=== PATIENT | male | born 1945 | race American Indian/Alaskan Native ===

== ENCOUNTER 2016-08-08 12:23 | Outpatient (CLI) | payer MEDICARE, OTHER ==
--- NOTE | 2016-08-09 10:22 | Ultrasound Report ---
ULTRASOUND RENAL BILATERAL: INDICATION: Chronic kidney disease, stage III. COMPARISON: None similar at this institution. FINDINGS: Renal sonography demonstrates top normal/borderline renal cortical echogenicity. Grossly preserved contours. No hydronephrosis. Right kidney is 10.8 x 4 x 4.6 cm with cortical thickness of 1.2 cm. An approximately 2.4 cm right renal interpolar cyst posteromedially incidentally noted. Duplicated intrarenal collecting system also not entirely excluded. Left kidney is 9.9 x 5.7 x 4.8 cm with cortical thickness of 1.5 cm. Approximately 1 cm hypoechoic cortical cyst superiorly may be present, image 20 while an approximately 1 cm somewhat hyperechoic lower pole cortical focus as on images 25-27 may represent a hemorrhagic cyst, amongst others. Urinary bladder grossly within normal limits, to the extent assessed. CONCLUSION: No acute renal sonographic abnormality with slight underlying medical renal disease sonographically and bilateral renal cysts, as described. Thank you for the opportunity to participate in this patient's care.
== END 2016-08-08 12:24 | disposition home or self-care (01) ==
LOC: US 12:23
PROVIDERS: ATTEND Specialist
DX: N18.3 Chronic kidney disease, stage 3 (moderate) (principal); N28.1 Cyst of kidney, acquired
CPT/HCPCS: 76770

== ENCOUNTER 2019-04-20 09:17 | Emergency (ER) | payer MEDICARE ==
--- NOTE | 2019-04-20 10:35 | Emergency Department Report ---
ED General Adult HPI - General Chief complaint: Cardiac Arrest/CPR Stated complaint: CARDIAC ARREST Time Seen by Provider: 04/20/19 09:48 Source: EMS Mode of arrival: Stretcher Limitations: Other - History of Present Illness Initial comments: The patient presents to the emergency department in cardiac arrest via EMS. The patient is intubated on arrival. Per EMS the patient was last seen normal 30 minutes prior to arrival. Per EMS the patient was asystole upon arrival and received 4 rounds of epinephrine and chest compressions prior to arrival to the ED. the patient has a history of liver cancer -: Sudden Severity scale (0 -10): 0 Improves with: none Worsens with: none Associated Symptoms: denies other symptoms Treatments Prior to Arrival: none - Related Data Allergies Allergy/AdvReac Type Severity Reaction Status Date / Time No Known Allergies Allergy Unverified 08/08/16 12:23 ED Review of Systems ROS: Stated complaint: CARDIAC ARREST Other details as noted in HPI Comment: Unobtainable due to pts medical conditions ED Physical Exam - General Limitations: Other General appearance: other (intubated and unresponsive) - Head Head exam: Present: atraumatic, normocephalic - Eye Eye exam: Present: other (pupils fixed ) - ENT ENT exam: Present: mucous membranes dry - Neck Neck exam: Present: normal inspection - Respiratory Respiratory exam: Present: other (equal breath sounds with bag valve masking) - Cardiovascular Cardiovascular Exam: Present: other (asystole) - GI/Abdominal GI/Abdominal exam: Present: soft. Absent: distended, tenderness - Extremities Exam Extremities exam: Present: pedal edema, other (pitting edema of the right leg). Absent: joint swelling - Back Exam Back exam: Present: normal inspection - Neurological Exam Neurological exam: Present: other (gcs 3) - Psychiatric Psychiatric exam: Present: other (able to assess due to the patient's presentation) - Skin Skin exam: Present: warm, dry, intact, normal color. Absent: rash ED Medical Decision Making - Medical Decision Making ACLS protocol was followed please see code sheet There was a point of return of spontaneous circulation and the patient coded again to no avail Time of is 9:47 AM Critical care attestation.: If time is entered above; I have spent that time in minutes in the direct care of this critically ill patient, excluding procedure time. ED Disposition Clinical Impression: Cardiac arrest Disposition: DC-20 Is pt being admited?: No Does the pt Need Aspirin: No Condition: Stable Referrals: PRIMARY CARE, [Primary Care Provider] - 3-5 Days
== END 2019-04-20 10:30 ==
LOC: ED 09:17
DX: I46.9 Cardiac arrest, cause unspecified (principal)
CPT/HCPCS: 92950; 93005; 93010